=== PATIENT | male | born 1960 | race Caucasian/White ===

== ENCOUNTER 2016-11-25 06:43 | Inpatient (IN) ==
[2016-11-25 07:32] LABS: Basophils # 0.1 10*3/uL (0.0-0.2); Basophils % 1.2 % (0.0-0.8); Eosinophils # 0.3 10*3/uL (0.0-0.87); Eosinophils % 3.3 % (0.00-10.9); Hematocrit 42.9 VOL% (42.0-52.0); Hemoglobin 15.6 GM/DL (14.0-18.0); Immature Granulocytes % 0.4 %; Immature Granulocytes Absolute 0.03 #; Lymphocytes # 1.8 10*3/uL (1.4-4.0); Lymphocytes % 24.3 % (21.2-54.2); Mean Corpuscular HGB Conc 36.4 GM/DL (32-36); Mean Corpuscular Hemoglobin 32 PG (27-34); Mean Corpuscular Volume 87.9 FL (87-102); Mean Platelet Volume 8.9 FL (9.6-12.0); Monocytes # 0.9 10*3/uL (0.11-0.8); Monocytes % 12.3 % (1.7-12.7); Neutrophils # 4.4 10*3/uL (1.4-7.4); Neutrophils % 58.5 % (38.7-73.9); Platelet Count 229 T/CUMM (130-400); Red Blood Count 4.88 MC/CUMM (3.8-5.5); Red Cell Distribution Width 12.2 % (9.3-17.3); White Blood Count 7.5 T/CUMM (4-12)
[2016-11-25 08:01] LABS: Albumin 3.4 G/DL (3.4-5.0); Bilirubin,Total 0.7 MG/DL (0.2-1.0); Calcium 8.9 MG/DL (8.5-10.1); Potassium 3.8 MMOL/L (3.5-5.1)
[2016-11-25 08:09] LABS: Magnesium 2.2 MG/DL (1.8-2.4)
--- NOTE | 2016-11-25 08:10 | Ultrasound Report ---
Exam: US gallbladder Date: 11/25/2016 7:06 AM Comparison: 08/09/2014 Indication: Right upper quadrant pain with nausea and vomiting Technique:[Multiple transabdominal real-time scans were obtained of the right upper quadrant. Color-flow scans obtained. Ultrasound images were captured and stored. Findings: Small echogenic findings are noted in the neck of the gallbladder which do not move with minimal posterior acoustical shadowing. Additional small polypoidal findings are noted with the largest measuring 3 mm. Negative sonographic Garcia sign. CBD is normal in size measuring 5 mm. The liver is normal in size with fatty infiltration. The right kidney measures 112 mm in length no mass or hydronephrosis. The pancreas, aorta including the aortic bifurcation, and IVC are obscured by bowel gas. Limited color flow scans obtained. Impression: Small gallstones are felt to be present with additional small polyps. Fatty infiltration of the liver. The pancreas and aorta are obscured by bowel gas. PROCEDURE INTERPRETED AT [facility] DEPARTMENT OF RADIOLOGY Final Report Signed by: Dr. Debbie Menchaca
[2016-11-25 08:31] LABS: Apearance,Urine Slightly Hazy (Clear); Bilirubin,Urine Negative (Negative); Blood, Urine Negative (Negative); Glucose,Urine (UA) Negative (Negative); Ketones,Urine Negative (Negative); Mucus,Urine Many /LPF (Occasional); Nitrite,Urine Negative (Negative); Protein,Urine Negative; RBC,Urine 1 /HPF (0-4); Urine Color Yellow (Yellow); Urine Specific Gravity 1.026 (1.001-1.035); Urine Urobilinogen < 2.0 EU/DL (0.2-1.0); WBC,Urine 3 /HPF (0-6)
--- NOTE | 2016-11-25 08:56 | Emergency Department Note ---
Trip Washington Mantricia, am scribing for, and in the presence of, Tonio Tsang MD 08:19. Sharan Washington Phillip K, MD, personally performed the services described in this documentation, ascribed by Justo Dominique in my presence, and it is both accurate and complete [id number] . Arrival - Arrival Chief Complaint: Abdominal / Flank Pain Stated Complaint: abdominal pain on right side/possible gallbladder ED Nursing Triage Note: Patient to triage with c/o intermittent RUQ ABD pain that radiates to right upper back x 4 days. denies any N/V at this time but did have nausea earlier in onset of s/s. Patient was told he does have same small gallstones when an US was done last year. Patient has tried to get an appt with Daniel but has been unable to. Mode of Arrival: Ambulatory Limitations: No Limitations Source: Patient Time Seen by Provider: 11/25/16 07:43 - History of Present Illness HPI Narrative: Pt is a 56 y/o white male arriving to Ed with c/o right sided abdominal pain that onset 4 days ago. He states that Dr. Sanchez told him a year ago that he had 2 small gallstones and did not advise him to get them taken out until they bothered him. Pt states that the pain radiates to the right side of his back and wakes him up out of his sleep. Pt also c/o nausea and chills. He has a PMHx of GERD and HLD. He reports no other complaints to ED. Onset (ago): day(s) Consistency: constant Allergies/Adverse Reactions: Allergies Allergy/AdvReac Type Severity Reaction Status Date / Time levofloxacin [From Levaquin] AdvReac Unknown/Unable Verified 11/25/16 06:55 to obtain Review of System - Review of System 12 point system: reviewed and no additional remarkable complaints except as stated - Review of System Constitutional: Present: chills. Absent: diaphoresis, fever Head/Ears/Nose/Throat: Absent: earache Respiratory: Absent: cough Gastrointestinal: Present: abdominal pain (right sided), nausea. Absent: vomiting Genitourinary male: Absent: urgency Medical,Surgical,& Family Hx - Medical History Endocrine: History of: Dyslipidemia Gastrointestinal: History of: GERD - Social History Smoking Status: Never smoker Frequency of Alcohol Use: None Type of Drug Use: None Exam Vital Signs: Vital Signs Temperature 97.6 F 11/25/16 06:48 Pulse Rate 68 11/25/16 07:03 Respiratory Rate 18 11/25/16 07:03 Blood Pressure 137/94 11/25/16 07:03 O2 Sat by Pulse Oximetry 98 11/25/16 07:03 - General General appearance: alert, in no apparent distress - Head Head exam: Present: atraumatic, normocephalic, normal inspection - Eye Eye exam: Present: normal appearance, PERRL, EOMI - ENT ENT exam: Present: normal exam, normal oropharynx, mucous membranes moist, TM's normal bilaterally, normal external ear exam - Neck Neck exam: Present: normal inspection, full ROM, trachea midline. Absent: tenderness - Chest Chest inspection: Present: normal inspection, symmetric chest wall rise. Absent : tenderness - Respiratory Respiratory exam: Present: normal lung sounds bilaterally - Cardiovascular Cardiovascular exam: Present: regular rate, normal rhythm, normal heart sounds - Abdominal Exam Abdominal exam: Present: soft, normal bowel sounds. Absent: distention, tenderness, guarding, rebound - Extremities Exam Extremities exam: Present: normal inspection, full ROM, normal capillary refill. Absent: tenderness, pedal edema - Back Exam Back exam: Present: normal inspection, full ROM. Absent: tenderness - Neurological Exam Neurological exam: Present: alert, oriented X3, CN II-XII intact, normal gait, reflexes normal - Psychiatric Psychiatric exam: Present: normal affect, normal mood - Skin Skin exam: Present: warm, dry, intact, normal color Course Course Narrative: Patient discussed with Dr. Ervin who will see in the ED. Results - Labs CBC & BMP: 11/25/16 07:21 11/25/16 07:21 Lab Results: I have reviewed the patients labs - Diagnostic Findings Procedure: Ultrasound: report reviewed by me (Sonogram shows small gallstones in the neck of the gallbladder along with some polyps.) Disposition Clinical Impression: Cholelithiasis Case discussed with: patient Disposition: Still a Patient Condition: Guarded
--- NOTE | 2016-11-25 09:54 | General Surg History&Physical ---
Assessment and Plan (1) Cholelithiasis Status: Acute Assessment and plan: At this point, the patient has experienced biliary colic suspected associated with cholelithiasis. Indications for surgery as well as the alternative treatment options were reviewed with the patient. Risk of surgery reviewed including but not limited to infection, bleeding, blood vessel injury, nerve injury, adjacent organ injury, the need for additional procedures and/or open procedure, bile leak, retained stones, reactions to medications, heart attack, pneumonia, pneumothorax, hemothorax, stroke, heart attack, and other unforeseeable cardiac report pulmonary and/or cardiac events including the risk of . Patient and his were present expressed understanding of these risks and agreed to proceed with surgical intervention pending the medical assessment assessment requested below. We will proceed in the morning provided no contraindications to proceeding R discovered. Current Visit: Yes Qualifiers: Cholelithiasis location: gallbladder Cholecystitis presence: without cholecystitis Biliary obstruction: without biliary obstruction Qualified Code(s): K80.20 - Calculus of gallbladder without cholecystitis without obstruction (2) Elevated blood pressure reading Status: Acute Assessment and plan: Patient pressure noted to be significantly elevated at bedside with systolic blood pressures in the 150s and diastolics in the 100s-110s. Patient has no known history of hypertension. This may be situational, we will request a medical evaluation prior to proceeding with the surgery as discussed above. Will obtain chest x-ray and EKG and appreciate the input from the hospitalist team. Current Visit: Yes (3) Hepatic steatosis Status: Acute Assessment and plan: Incidental finding on ultrasound. We will check hepatitis panel and recommend outpatient monitoring and diet modifications. Current Visit: Yes (4) Chronic GERD Status: Acute Assessment and plan: PPI daily. Monitor. Current Visit: Yes (5) Dyslipidemia Status: Acute Assessment and plan: Continue home medications. Current Visit: Yes (6) Prophylactic measure Status: Acute Assessment and plan: GI ppx: PPI daily DVT ppx: SCD and early moblization. Hold chemoprophylaxis with anticipated surgery in am. Current Visit: Yes History of Present Illness Chief complaint: RUQ pain History of present illness: Mr. Reinoso is a 56 year old male with past medical history of GERD and hyperlipidemia who presents to the emergency department with progressive right upper quadrant pain over the past 4 days. Patient reports he has a known history of cholelithiasis which is previously asymptomatic and found incidentally on previous imaging. He noted over the past few months he has had intermittent right upper quadrant pain which he did not think was very significant, but in the past 4 evenings he has experienced progressive, sharp right upper quadrant pain associated with nausea without vomiting. He has had no fever, chills, rigors or diarrhea, melena or hematochezia. Last bowel movement was last night. Patient has cardiac history and reports being active without chest pain, palpitations, shortness of breath, dyspnea on exertion, PND or orthopnea. He has no known history of hypertension and reports he actually has "good blood pressure." Initially pressures noted in the ER in the 140s over 90s, but upon my exam pressures noted persistently in the 150s over 100-110 's. Allergies Allergy/AdvReac Type Severity Reaction Status Date / Time levofloxacin [From Levaquin] AdvReac Unknown/Unable Verified 11/25/16 06:55 to obtain Medical,Surgical,& Family Hx - Medical History Endocrine: History of: Dyslipidemia Gastrointestinal: History of: GERD - Surgical History Orthopedic Surgeries: Surgical HX of;: Orthopedic Surgery (Rig tknee arthroscopy x 2; no complications) - Family History Family History: Reports;: Family Stroke, Additional Family History (dementia) - Social History Smoking Status: Never smoker Frequency of Alcohol Use: None Type of Drug Use: None Lives With:: Spouse Functional capacity: independent ambulation Exam - Constitutional Vitals: Period Temp Pulse Resp BP Sys/[place] Pulse Ox Last 24 Hr 97.6 F-97.6 F 62-68 16-18 137-145/93-94 98-99 General appearance: no acute distress, over weight - Head Head exam: Present: normal inspection, normocephalic - Eye Eye exam: Absent: conjunctival injection, periorbital swelling, scleral icterus - Neck Neck exam: Present: trachea midline - Respiratory Respiratory exam: Present: clear to auscultation bilaterally - Cardiovascular Cardiovascular exam: Present: RRR - GI/Abdominal GI/Abdominal exam: Present: tenderness (RUQ), soft. Absent: distended, guarding - Extremities Exam Extremities exam: Absent: calf tenderness, edema - Neurological Exam Neurological exam: Present: alert, oriented X3 Speech: Present: normal - Skin Skin exam: Present: normal color, warm - Constitutional Constitutional: Present: as per HPI - Cardiovascular Cardiovascular: Present: as per HPI - Respiratory Respiratory: Present: as per HPI - Gastrointestinal Gastrointestinal: Present: as per HPI - Genitourinary Genitourinary: Absent: difficulty urinating, dysuria, flank pain, hematuria - Musculoskeletal Musculoskeletal: Absent: arthralgias Hematologic/Lymphatic: Absent: easy bleeding, easy bruising Results - Labs CBC & BMP: 11/25/16 07:21 11/25/16 07:21 Labs: LFTs unremarkable - Diagnostic Findings Procedure: Ultrasound: image reviewed by me, report reviewed by me (GB: cholelithiasis and possible polyps; no evidence of ductal dilatatoin)
[2016-11-25] MEDS ORDERED: ACETAMINOPHEN 325 MG TABLET PO PRN (10:31)
[2016-11-25] MEDS ORDERED: ONDANSETRON 4 MG/2 ML VIAL IV PRN (10:31)
[2016-11-25] MEDS ORDERED: MORPHINE 2 MG/1 ML SYRINGE IV PRN (10:31)
[2016-11-25 10:47] LABS: Partial Thromboplastin Time 27.7 SECS (0-40)
--- NOTE | 2016-11-25 11:27 | XRay Report ---
XR chest 2V Date: 11/25/2016 10:31 AM History: Shortness of breath Comparison: None Technique: PA and lateral chest Findings: The heart is normal in size with left cardiac fat pad. Calcified granulomata/nodes. Degenerative changes are noted. Impression: The lungs are slightly overexpanded which can be seen with deep inspiration, reactive airway disease, or COPD. Evidence of old healed granulomatous disease. PROCEDURE INTERPRETED AT [facility] DEPARTMENT OF RADIOLOGY Final Report Signed by: Dr. Debbie Menchaca
--- NOTE | 2016-11-25 12:21 | Hospitalist Consult Note ---
Assessment and Plan - Time spent with patient Time spent with patient: Less than 30 minutes (1) Cholelithiasis Status: Acute Assessment and plan: Cholecystectomy plan for tomorrow. Current Visit: Yes Qualifiers: Cholelithiasis location: gallbladder Cholecystitis presence: without cholecystitis Biliary obstruction: without biliary obstruction Qualified Code(s): K80.20 - Calculus of gallbladder without cholecystitis without obstruction (2) Chronic GERD Status: Acute Assessment and plan: The patient reports that his GERD is not chronic in nature. He reports that he has periodic episodes however does not take medications on a daily basis. We will PPIs during the clinical encounter and monitor. Current Visit: Yes (3) Dyslipidemia Status: Acute Assessment and plan: We will obtain lipid panel. Patient reports that he has been treated for dyslipidemia in the past and that he takes medications on a regular basis. We will monitor and restart home medications. Current Visit: Yes (4) Elevated blood pressure reading Status: Acute Assessment and plan: The patient is adamant that he is not hypertensive. He states that he was distressed with the initial blood pressure reading at the time of ED presentation. His systolic blood pressures have remained consistently high during the clinical encounter noted at above 85. We will continue to monitor. Current Visit: Yes (5) Hepatic steatosis Status: Acute Current Visit: Yes History of Present Illness - Data of Consult Consult date: 11/25/16 Requesting Physician: Sanju Ferrer - Consult Narrative Reason for consult: Medical management History of present illness: This is a very pleasant 56-year-old male that presented to the ED at [facility] on November 25, 2016 for evaluation of right-sided abdominal pain. The patient has a medical history significant for dyslipidemia and GERD. The patient reports no significant surgical history. The patient reported the onset of symptoms 4 days prior to presentation. He reports that the pain is intermittent; however is isolated to the right upper quadrant and frequently radiates to the right upper back. The patient denied nausea and vomiting at the time of presentation however, reports that he has had feelings of nausea earlier that morning. The patient had experience episodes similar in nature in the past, he reports that he was evaluated. He given an ultrasound of his abdomen was told that he had small gallstones at that time. Pertinent positives include: Nausea, chills, right upper quadrant abdominal pain, and right upper back pain; pertinent negative includes: Syncope, visual changes, dysuria, fever, weight loss,and changes in appetite. Ultrasound of the abdomen was obtained which reported small gallstones with the presence of additional small polyps. In addition fatty infiltration of the liver was identified and the pancreas and aorta were obscured secondary to bowel gas. Chest x-ray was obtained which reported that the lungs are slightly overexpanded which could be seen with deep inspiration, reactive airway disease, or chronic pulmonary obstructive disease. In addition evidence of old healed granulomatous tissue was identified. The patient was subsequently admitted to [facility] to the surgical services of Dr. Tere Ferrer for surgical intervention.The hospitalist group was consulted for medical management and surgical clearance. CC: Sanju Ferrer MD - Home Medications and Allergies Home Medications: Home Medications Medication Instructions Recorded Confirmed Type Meloxicam [Meloxicam] 15 mg PO QPM PRN 11/25/16 11/25/16 History [place]-3/Dha/Epa/Fish Oil [Fish Oil 1 each PO TID 11/25/16 11/25/16 History 1,000 mg Softgel] Omeprazole [Omeprazole] 20 mg PO QPM 11/25/16 11/25/16 History Simvastatin [Simvastatin] 20 mg PO QPM 11/25/16 11/25/16 History Allergies/Adverse Reactions: Allergies Allergy/AdvReac Type Severity Reaction Status Date / Time levofloxacin [From Levaquin] AdvReac Unknown/Unable Verified 11/25/16 06:55 to obtain Medical,Surgical,& Family Hx - Medical History Endocrine: History of: Dyslipidemia Gastrointestinal: History of: GERD - Surgical History Orthopedic Surgeries: Surgical HX of;: Orthopedic Surgery (Righ tknee arthroscopy x 2; no complications) - Family History Family History: Reports;: Family Stroke, Additional Family History (dementia) - Social History Smoking Status: Never smoker Frequency of Alcohol Use: None Type of Drug Use: None 12 point system: reviewed and no additional remarkable complaints except as stated Exam - Constitutional Vitals: Period Temp Pulse Resp BP Sys/[place] Pulse Ox Last 24 Hr 97.0 F-97.6 F 59-68 16-18 118-147/85-96 98-100 General appearance: normal weight, no acute distress - Head Head exam: Present: normal inspection, normocephalic, atraumatic - Eye Eye exam: Present: EOMI, conjunctival injection Pupils: Present: MJ, normal accommodation - ENT ENT exam: Present: normal exam, normal external ear exam, normal oropharynx - Neck Neck exam: Present: normal inspection. Absent: lymphadenopathy, meningismus, tenderness, thyromegaly - Respiratory Respiratory exam: Present: clear to auscultation bilaterally. Absent: rales, rhonchi, stridor, wheezes - Cardiovascular Cardiovascular exam: Present: regular rate and rhythm. Absent: carotid bruit, diastolic murmur, gallop, JVD, rubs, systolic murmur, tachycardia - GI/Abdominal GI/Abdominal exam: Present: normal bowel sounds, tenderness (Right upper quadrant tenderness) - Extremities Exam Extremities exam: Present: normal inspection, normal capillary refill, full ROM , edema - Back Exam Back exam: Present: normal inspection - Neurological Exam Neurological exam: Present: alert, oriented X3, CN II-XII intact - Psychiatric Psychiatric exam: Present: normal affect, normal mood - Skin Skin exam: Present: normal color, warm, dry Results - Labs CBC & BMP: 11/25/16 07:21 11/25/16 07:21 Lab Results: I have reviewed the past 24 hour labs Quality Measures - VTE Contraindication to Pharmacological VTE Prophylaxis: High Risk of Bleeding
[2016-11-25 13:02] LABS: Risk Ratio 4.49; VLDL CHOLESTEROL 31.8 MG/DL
--- NOTE | 2016-11-25 14:28 | EKG Report ---
Stationary ECG Study [facility] Test Date: 11/25/2016 2:29:51 PM Pat Name: KALEE LEMUS Department: Room: 329 Gender: M Lieutenant/Deputy: SANIA : 1960 Requested by: Everardo Abraham Order Number: [id number] Reading MD: RUSSELL FAGAN Intervals [place] Rate: 61 P: 43 IA: 180 QRS: -14 QRSD: 96 T: 40 QT: 386 QTc: 390 Interpretive Statements SINUS RHYTHM MINIMAL VOLTAGE CRITERIA FOR LVH, CONSIDER NORMAL VARIANT Electronically Signed On 11-27-16 13:29:54 CDT by RUSSELL FAGAN [email or web address]
[2016-11-25 17:31] LABS: Apearance,Urine CLEAR (Clear); Bilirubin,Urine Negative (Negative); Blood, Urine Negative (Negative); Glucose,Urine (UA) 50 mg/dL (Negative); Ketones,Urine Negative (Negative); Mucus,Urine Moderate /LPF (Occasional); Nitrite,Urine Negative (Negative); Protein,Urine Negative; RBC,Urine <1 /HPF (0-4); Urine Color Yellow (Yellow); Urine Urobilinogen < 2.0 EU/DL (0.2-1.0); WBC,Urine 1 /HPF (0-6)
[2016-11-26 05:06] LABS: Basophils # 0.1 10*3/uL (0.0-0.2); Eosinophils # 0.3 10*3/uL (0.0-0.87); Eosinophils % 3.8 % (0.00-10.9); Hematocrit 42.6 VOL% (42.0-52.0); Hemoglobin 15.2 GM/DL (14.0-18.0); Immature Granulocytes % 0.4 %; Immature Granulocytes Absolute 0.03 #; Lymphocytes # 2.2 10*3/uL (1.4-4.0); Lymphocytes % 27.4 % (21.2-54.2); Mean Corpuscular HGB Conc 35.7 GM/DL (32-36); Mean Corpuscular Hemoglobin 32 PG (27-34); Mean Corpuscular Volume 88.4 FL (87-102); Mean Platelet Volume 8.6 FL (9.6-12.0); Monocytes # 0.9 10*3/uL (0.11-0.8); Monocytes % 10.9 % (1.7-12.7); Neutrophils # 4.6 10*3/uL (1.4-7.4); Neutrophils % 56.5 % (38.7-73.9); Platelet Count 230 T/CUMM (130-400); Red Blood Count 4.82 MC/CUMM (3.8-5.5); Red Cell Distribution Width 12.1 % (9.3-17.3); White Blood Count 8.1 T/CUMM (4-12)
[2016-11-26 05:36] LABS: Calcium 9.2 MG/DL (8.5-10.1); Osmolality,Calculated 286.8 MOS/KG (273-304); Potassium 4.5 MMOL/L (3.5-5.1)
[2016-11-26 05:40] LABS: Albumin 3.2 G/DL (3.4-5.0); Bilirubin,Direct 0.1 MG/DL (0.0-0.20); Bilirubin,Indirect 1.2 MG/DL (0.0-1.0); Bilirubin,Total 1.3 MG/DL (0.2-1.0); Total Protein 6.5 G/DL (6.4-8.3)
[2016-11-26] MEDS: PANTOPRAZOLE 40 MG TABLET PO SCH (08:04)
[2016-11-26] MEDS ORDERED: TISSUE ADHESIVE 1 EACH APPLICATOR TOP ONE (08:32)
[2016-11-26] MEDS ORDERED: BUPIVACAINE MPF 0.25% /EPI 30 ML VIAL ONE (08:32)
[2016-11-26] MEDS ORDERED: KETOROLAC 30 MG/1 ML VIAL ONE (11:30)
[2016-11-26] MEDS ORDERED: ROCURONIUM 100 MG/10 ML VIAL IV ONE (11:30)
[2016-11-26] MEDS ORDERED: NEOSTIGMINE 10 MG/10 ML VIAL ONE (11:30)
[2016-11-26] MEDS ORDERED: PHENYLEPHRINE 1 MG/10 ML SYRINGE IV ONE (11:30)
[2016-11-26] MEDS ORDERED: LIDOCAINE 2% 5 ML VIAL ONE (11:30)
[2016-11-26] MEDS ORDERED: PROPOFOL 200 MG/20 ML VIAL IV ONE (11:30)
[2016-11-26] MEDS ORDERED: SUCCINYLCHOLINE 200 MG/10 ML VIAL ONE (11:30)
[2016-11-26] MEDS ORDERED: GLYCOPYRROLATE 0.4 MG/2 ML VIAL ONE (11:30)
[2016-11-26] MEDS ORDERED: ONDANSETRON 4 MG/2 ML VIAL ONE (11:30)
[2016-11-26] MEDS ORDERED: SEVOFLURANE 1 UNIT/15 MINUTE INH ONE (12:54)
[2016-11-26] MEDS ORDERED: MIDAZOLAM 2 MG/2 ML VIAL ONE (12:55)
[2016-11-26] MEDS ORDERED: LACTATED RINGERS 1,000 ML IV ONE (12:55)
[2016-11-26] MEDS ORDERED: fentaNYL 100 MCG/2 ML VIAL ONE (12:55)
--- NOTE | 2016-11-26 12:58 | Anesthesia Post-Op ---
Anesthesia Post OP - Post Ansesthetic Evaluation Patient seen in post op: Yes Resp: within normal limits CV: within normal limits Mental: within normal limits Temp: within normal limits Zyou-Jc-Furrslsvo: within normal limits Nausea and Vomiting: within normal limits Pain: within normal limits
[2016-11-26] MEDS: HYDROmorphone 2 MG/1 ML VIAL IV PRN ×2 (13:00→13:10)
[2016-11-26] MEDS ORDERED: ONDANSETRON 4 MG/2 ML VIAL IV PRN (13:03)
--- NOTE | 2016-11-26 13:19 | Operative Note ---
Date of procedure: 11/26/16 Pre-op diagnosis: Symptomatic cholelithiasis, gallbladder polyps, possible chronic cholecysti Post-op diagnosis: same Procedure: Procedure performed: Laparoscopic cholecystectomy with intraoperative cholangiogram. Procedure in detail: After informed consent was obtained, patient was taken operating suite placed upon the operating table. After general anesthesia induced, the abdomen was prepped and draped in usual sterile fashion. After procedural pause, local anesthetic infiltrated the skin and subcutaneous tissue. Incision made and dissection carried down through skin and soft tissue. The fascia grasped with Phoenix's and elevated. Fascial incision was made. Abdominal cavity was entered bluntly. Finger sweep revealed no adhesions. Rodney trocar placed under direct visualization. Pneumoperitoneum achieved. Camera inserted. Bowel mesentery inspected found to be free of any violation. Next patient was placed in reverse Trendelenburg position rotated to the left. 2 5 mm trochars were placed in the right upper quadrant 11 mm subxiphoid trocar was placed all under visualization. Gallbladder was retracted superiorly. Infundibulum of the gallbladder retracted toward the right hip. There were changes consistent with chronic cholecystitis. Dissection was carried out from lateral to medial approach and the triangle of [place] and the cystic duct and cystic artery were identified and isolated. Using a critical view technique these 2 structures were the only ones entering the gallbladder. The cystic artery began to bleed and was double clipped. A clip was placed in the junction of the cystic duct neck of the gallbladder and partial transection made on cystic duct. Cholangiocatheter inserted and secured in place intraoperative cholangiogram performed. The cystic duct common bile duct intra-and extrahepatic ducts all filled with no filling defects identified. Contrast is seen entering small bowel. The cholangiocatheter was removed and the cystic duct was double clipped just distal to the partial transection the transection completed. The third clip was placed high along the gallbladder wall on the cystic artery and the cystic artery was transected. Gallbladder was then removed from the gallbladder fossa using hook cautery and placed in Endo Catch sac. Pneumoperitoneum and reachieved in the right upper quadrant thoroughly irrigated and suctioned. There was good hemostasis. The clips inspected found to be intact no leakage of bilious or sanguinous fluid. Irrigant remained clear was all suctioned. Trochars were removed his abdomen desufflated. Fascia at the Rodney trocar site closed using 0 Vicryl [id number] interrupted suture. Wounds irrigated and suctioned. Skin closed with agata. Sterile dressings applied. Patient was explained taken recovery room in stable condition. All lap and needle counts correct at the end of the case. Anesthesia: ANNALISEA Surgeon / Physician: Sanju Ferrer Estimated blood loss: other (Less than 10 cc) Specimens: other (Gallbladder) Condition: stable Disposition: PACU Results - Labs CBC & BMP: 11/26/16 04:57 11/26/16 04:57 Discharge Plan - Discharge Medications No Action Omeprazole [Omeprazole] 20 mg PO QPM Meloxicam [Meloxicam] 15 mg PO QPM PRN PRN Reason: RT KNEE PAIN Simvastatin [Simvastatin] 20 mg PO QPM [place]-3/Dha/Epa/Fish Oil [Fish Oil 1,000 mg Softgel] 1 each PO TID - Follow Up or Referral - Forms/Instructions
[2016-11-26] MEDS ORDERED: LACTATED RINGERS 1,000 ML IV SCH (13:30)
--- NOTE | 2016-11-26 14:29 | Hospitalist Progress Note ---
Assessment and Plan - Time spent with patient Time spent with patient: Greater than 30 minutes (1) Cholelithiasis Status: Acute Assessment and plan: Continue supportive care. Current Visit: Yes Qualifiers: Cholelithiasis location: gallbladder Cholecystitis presence: without cholecystitis Biliary obstruction: without biliary obstruction Qualified Code(s): K80.20 - Calculus of gallbladder without cholecystitis without obstruction Hospitalist: Subjective Interval history: Returned from surgery, no complaints. Exam - Constitutional Vitals: Period Temp Pulse Resp BP Sys/[place] Pulse Ox Last 24 Hr 97.3 F-98.2 F 57-74 16-20 127-163/57-97 94-100 General appearance: no acute distress - Head Head exam: Present: normocephalic, atraumatic - Eye Eye exam: Present: EOMI Pupils: Present: MJ - ENT ENT exam: Present: normal exam - Neck Neck exam: Present: normal inspection - Respiratory Respiratory exam: Present: clear to auscultation bilaterally. Absent: rhonchi, wheezes - Cardiovascular Cardiovascular exam: Present: regular rate and rhythm. Absent: gallop, rubs, systolic murmur - GI/Abdominal GI/Abdominal exam: Present: normal bowel sounds, soft, other (abdominal dressing ). Absent: distended, firm, guarding, tenderness, rebound - Extremities Exam Extremities exam: Present: normal inspection. Absent: calf tenderness, edema Results - Labs CBC & BMP: 11/26/16 04:57 11/26/16 04:57 Lab Results: I have reviewed the past 24 hour labs Quality Measures - VTE Contraindication to Pharmacological VTE Prophylaxis: High Risk of Bleeding Specialty Discharge - Follow Up or Referrals Follow up with: Sanju Ferrer MD [Physician] -
--- NOTE | 2016-11-26 15:24 | Fluoroscopy Report ---
[place] cholangiogram in surgery Indication: Cholecystectomy. Intraoperative cholangiogram: Fluoroscopy time 22 seconds, 67 captured images. Injection of the cystic duct remnant shows normal filling of the biliary collecting system which shows no dilatation, stricture or stenosis. Prompt spillage of contrast in the small bowel noted. No filling defects. Impression: Normal intraoperative cholangiogram. PROCEDURE INTERPRETED AT [facility] DEPARTMENT OF RADIOLOGY Final Report Signed by: René Welch M.D.
[2016-11-27 06:23] LABS: Basophils % 0.3 % (0.0-0.8); Eosinophils # 0.2 10*3/uL (0.0-0.87); Eosinophils % 1.7 % (0.00-10.9); Hematocrit 40.8 VOL% (42.0-52.0); Hemoglobin 14.3 GM/DL (14.0-18.0); Immature Granulocytes % 0.3 %; Immature Granulocytes Absolute 0.03 #; Lymphocytes # 1.7 10*3/uL (1.4-4.0); Lymphocytes % 17.3 % (21.2-54.2); Mean Corpuscular Hemoglobin 31 PG (27-34); Mean Corpuscular Volume 88.5 FL (87-102); Mean Platelet Volume 9.3 FL (9.6-12.0); Monocytes # 0.8 10*3/uL (0.11-0.8); Monocytes % 8.3 % (1.7-12.7); Neutrophils # 6.9 10*3/uL (1.4-7.4); Neutrophils % 72.1 % (38.7-73.9); Platelet Count 239 T/CUMM (130-400); Red Blood Count 4.61 MC/CUMM (3.8-5.5); Red Cell Distribution Width 12.1 % (9.3-17.3); White Blood Count 9.6 T/CUMM (4-12)
[2016-11-27 07:01] LABS: Calcium 8.8 MG/DL (8.5-10.1); Osmolality,Calculated 284.8 MOS/KG (273-304); Potassium 3.8 MMOL/L (3.5-5.1)
[2016-11-27] MEDS: PANTOPRAZOLE 40 MG TABLET PO SCH (09:56)
[2016-11-27] MEDS ORDERED: amLODIPine 5 MG TABLET PO SCH (10:30)
--- NOTE | 2016-11-27 10:36 | Hospitalist Progress Note ---
Assessment and Plan - Time spent with patient Time spent with patient: Greater than 30 minutes (1) Cholelithiasis Status: Acute Assessment and plan: Continue supportive care. Current Visit: Yes Qualifiers: Cholelithiasis location: gallbladder Cholecystitis presence: without cholecystitis Biliary obstruction: without biliary obstruction Qualified Code(s): K80.20 - Calculus of gallbladder without cholecystitis without obstruction (2) Hypertension Status: Acute Assessment and plan: Will start norvasc 5mg po daily. Current Visit: Yes Hospitalist: Subjective Interval history: No complaints or overnight events. Exam - Constitutional Vitals: Period Temp Pulse Resp BP Sys/[place] Pulse Ox Last 24 Hr 97.3 F-98.1 F 57-77 16-20 130-163/81-97 94-100 General appearance: no acute distress - Head Head exam: Present: normocephalic, atraumatic - Eye Eye exam: Present: EOMI Pupils: Present: MJ - ENT ENT exam: Present: normal exam - Neck Neck exam: Present: normal inspection - Respiratory Respiratory exam: Present: clear to auscultation bilaterally. Absent: rhonchi, wheezes - Cardiovascular Cardiovascular exam: Present: regular rate and rhythm. Absent: gallop, rubs, systolic murmur - GI/Abdominal GI/Abdominal exam: Present: normal bowel sounds, soft. Absent: distended, firm , guarding, tenderness, rebound - Extremities Exam Extremities exam: Present: normal inspection. Absent: calf tenderness, edema Results - Labs CBC & BMP: 11/27/16 04:57 11/27/16 04:57 Lab Results: I have reviewed the past 24 hour labs Quality Measures - VTE Contraindication to Pharmacological VTE Prophylaxis: High Risk of Bleeding Specialty Discharge - Follow Up or Referrals Follow up with: Sanju Ferrer MD [Physician] - 12/09/16 10:30 am
--- NOTE | 2016-11-27 10:41 | Discharge Summary ---
Hospital Course - Hospital Course Hospital Course: Patient is a 56-year-old male presented to the emergency department with symptomatic cholelithiasis. He underwent laparoscopic cholecystectomy with intraoperative cholangiogram without complication. Postoperatively from a surgical standpoint his course was comp gated. He developed tolerated oral intake, voided and tolerated activity without complication. He was passing flatus the time of discharge. Pain was adequately controlled. Patient was noted to have elevated blood pressures in the ER and in the perioperative period. He had no history of hypertension. He was started on low-dose Norvasc. He is provided education on BP monitoring and instructed to follow-up with his PCP with whom he reports compliance for other medical comorbidities. Patient also incidentally noted to have hepatic steatosis. We will also recommend follow-up with his PCP for further evaluation and monitoring. Patient was discharged home in good condition. Diagnosis - Discharge Diagnosis (1) Cholelithiasis Status: Acute (2) Elevated blood pressure reading Status: Acute (3) Hepatic steatosis Status: Acute (4) Chronic GERD Status: Chronic (5) Dyslipidemia Status: Chronic Specialty Discharge - Follow Up or Referrals Follow up with: Sanju Ferrer MD [Physician] - 12/09/16 10:30 am Discharge Plan - Discharge Data Disposition: Disch To Home/Self Care Condition at Discharge: Stable Discharge Diet: heart healthy Activity: no lifting (? 10 lb) Hygiene: may shower (Starting Wednesday11/28/2016. Do not soak or submerge surgical incision. Pat dry. ) Driving: other (No driving while taking narcotics) Contact your physician if you experience:: fever over 101, Difficulty voiding, Redness or swelling, Nausea/Vomiting, Shortness of breath, Bleeding, pain uncontrolled by pain medications Wound / Dressing Care Instructions: Keep surgical incisions clean and dry. Avoid excessive perspiration. - Discharge Medications New amLODIPine [Norvasc] 5 mg PO DAILY #30 tablet HYDROcodone/ACETAMIN 7.5-325 [[place] 7.5-325] 1 tablet PO Q4H PRN #30 tablet PRN Reason: Pain Moderate To Severe (4-10) Continue Omeprazole 20 mg PO QPM Meloxicam 15 mg PO QPM PRN PRN Reason: RT KNEE PAIN Simvastatin 20 mg PO QPM [place]-3/Dha/Epa/Fish Oil [Fish Oil 1,000 mg Softgel] 1 each PO TID - Follow Up or Referral Follow Up: Sanju Ferrer MD [Physician] - 12/09/16 10:30 am - Forms/Instructions Instructions: Laparoscopic Cholecystectomy (DC), Hypertension (DC), How to Take a Blood Pressure (DC) Additional Discharge Instructions: Follow up with PCP 5-7 days re: Hypertension and new medication; hepatic steatosis (incidental finding) Exam - Constitutional Vitals: Period Temp Pulse Resp BP Sys/[place] Pulse Ox Last 24 Hr 97.3 F-98.1 F 57-77 16-20 130-163/81-97 94-100 General appearance: no acute distress - Head Head exam: Present: normal inspection, normocephalic - Eye Eye exam: Absent: conjunctival injection, scleral icterus - Respiratory Respiratory exam: Present: clear to auscultation bilaterally - Cardiovascular Cardiovascular exam: Present: regular rate and rhythm - GI/Abdominal GI/Abdominal exam: Present: soft, other (Surgical dressings are clean, dry and intact. Bowel sounds are present.). Absent: distended - Extremities Exam Extremities exam: Absent: calf tenderness, edema - Neurological Exam Neurological exam: Present: alert, oriented X3 - Psychiatric Psychiatric exam: Present: normal affect, normal mood Discharge Results Procedures and tests throughout hospitalization: 1. Laparoscopic cholecystectomy 2. Intraoperative cholangiogram 3. Pathology pending Labs on day of discharge: Labs from last 24 hours 11/27/16 11/27/16 04:57 04:57 WBC 9.6 RBC 4.61 Hgb 14.3 Hct 40.8 L MCV 88.5 MCH 31 MCHC 35.0 RDW 12.1 Plt Count 239 MPV 9.3 L Neut % (Auto) 72.1 Lymph % (Auto) 17.3 L [place] % (Auto) 8.3 Eos % (Auto) 1.7 Baso % (Auto) 0.3 Neut # (Auto) 6.9 Lymph # (Auto) 1.7 [place] # (Auto) 0.8 Eos # (Auto) 0.2 Baso # (Auto) 0.0 Immature Gran % 0.3 Nucleated RBC % 0.0 Immature Gran # 0.03 Nucleated RBCs # 0.00 Sodium 144 Potassium 3.8 Chloride 107 Carbon Dioxide 27 Anion Gap 13.8 BUN 12 Creatinine 0.90 GFR Calculation 121 BUN/Creatinine Ratio 13.00 Glucose 78 Calculated Osmolality 284.8 Calcium 8.8 - Imaging and Cardiology Procedure: Ultrasound: image reviewed by , report reviewed by me (Gallbladder) DS: Provider Date of admission: 11/25/16 09:44 Primary care physician: . No PCP Attending physician on admission: Sanju Ferrer MD Consults: 11/25/16 10:31 Consult to Physician [CONS] Routine Comment: elevated BP; preopeval Consulting Provider: Raine Romo Consulting Provider Notified: Yes When should Consulting Provider be notified: Now Person Notified: Cat called Date Notified: 11/25/16 Time Notified: 10:43 Discharging clinician: Trina Estevez PA-C
--- NOTE | 2016-11-27 11:25 | Pathology Report from [facility] ---
[facility] ACCESSION # : [id number] PATIENT NAME : Yomi Lemus ORDERING DR : Sanju Ferrer MD CLINICAL HX: Cholecystitis POST-OP DX: Same SPECIMEN INFO: Gallbladder GROSS DESCRIPTION: Received in formalin labeled YOMI LEMUS & GALLBLADDER is an open gallbladder measuring 6.5 x 3.0 cm. The serosa is smooth and stained with yellow bile. The gallbladder wall measures 0.3 cm. The mucosal surface displays diffuse yellow streaking with multiple yellow polypoid areas noted measuring up to 0.4 x 0.4 cm. Two black stones are seen measuring up to 2.5 cm. Payroll Examiner sections are submitted in one cassette. DIAGNOSIS FOR YOMI LEMUS: GALLBLADDER: Chronic cholecystitis. Cholelithiasis. No evidence of malignancy. Cholesterolosis. COLLECTED DATE: 11/26/2016 [facility] REPORT DATE: 11/27/2016 ELECTRONICALLY SIGNED BY: Clementina Das III, M.D. 11/27/2016 - 9:52:25 MTDAdy
[2016-11-27 11:37] VITALS: BP 152/84
--- NOTE | 2016-12-01 08:13 | Physician Query Form ---
CLICK EDIT DOCUMENT TO SELECT QUERY ANSWER --> OK --> SIGN Griselda Chin RN Clinical Data Warehouse Analyst W) [phone] (f) [phone] [email or web address] PROVIDERS: Make your selection(s) from the choices in EACH section by typing an "x" and enter comments in the comment section. Please use your independent medical judgment in providing your response. This request does not imply that any particular answer is desired or expected. CLINICAL INDICATORS: (Providers should not edit this section) Patient admitted with acute cholelithiasis. He underwent laparoscopic cholecystectomy with intraoperative cholangiogram. Operative report states "possible chronic cholecystitis". Pathology states "chronic cholecystitis and cholelithiasis". Please clarify if you agree with the pathology findings. Pathology Findings:chronic cholecystitis and cholelithiasis Abnormal Pathology findings are not reported unless an authorized provider indicates their clinical significance Please select the best choice: ( ) I agree with the Pathology findings ( ) I disagree with the Pathology findings ( ) No clinical significance ( ) Other/clarification of findings, please specify: (x ) Clinically unable to determine COMMENTS: PLEASE ALSO DOCUMENT RESPONSE IN PROGRESS NOTES AND/OR DISCHARGE SUMMARY Use of terms such as suspected, likely, or probable (associated with a specific diagnosis that is being evaluated, monitored, or treated as if it exists) are acceptable and can be restated in the discharge summary if not ruled out. MTDD
== END 2016-11-27 12:10 | disposition home or self-care (01) | DRG 419 ==
LOC: N.ED 06:43 → N.EDINP 09:44 → N.3E 10:31
PROVIDERS: ADMIT Surgery; ATTEND Surgery
PROC: LAPCHOL (2016-11-26 14:20)